=== PATIENT | female | born 1985 | race Caucasian/White ===

== ENCOUNTER 2023-12-08 04:08 | Day surgery (SDC) | payer OTHER ==
[2023-12-07 13:49] VITALS: BMI 29.9
[2023-12-08] MEDS ORDERED: oxyCODONE HCL 5 MG TABLET PO PRN ×2 (13:31)
[2023-12-08] MEDS ORDERED: PROMETHAZINE HCL 25 MG/1 ML VIAL IVPB PRN (13:31)
[2023-12-08] MEDS ORDERED: LACTATED RINGERS SOLUTION 1,000 ML IV SCH (13:45)
[2023-12-08] MEDS ORDERED: SEVOFLURANE 250 ML BTL ONE (13:45)
[2023-12-08] MEDS ORDERED: MIDAZOLAM HCL 2 MG/2 ML SINGLE DOSE VIAL ONE (13:48)
[2023-12-08] MEDS ORDERED: PROPOFOL 20 ML ONE (13:48)
[2023-12-08] MEDS ORDERED: ACETAMINOPHEN INJECTION 100 ML IVPB ONE (13:51)
[2023-12-08] MEDS ORDERED: LIDOCAINE HCL/PF 2% SDV 5ML VIAL ONE (13:56)
[2023-12-08] MEDS ORDERED: DEXAMETHASONE SOD PHOSPHATE 4 MG/1 ML VIAL ONE (13:56)
[2023-12-08] MEDS ORDERED: KETOROLAC TROMETHAMINE 30 MG/1 ML VIAL ONE (13:56)
[2023-12-08] MEDS ORDERED: ceFAZolin SODIUM 1 GM VIAL ONE (14:01)
[2023-12-08] MEDS: ceFAZolin SODIUM 1 GM VIAL IVPB ONE (14:06)
[2023-12-08] MEDS: BUPIVACAINE HCL/PF 0.5% (5MG/ML) 10 ML VIAL IJ ONE (15:32)
[2023-12-08] MEDS: ONDANSETRON 4 MG/2 ML VIAL IVPUSH PRN (18:48)
[2023-12-08] MEDS ORDERED: ONDANSETRON 4 MG/2 ML VIAL ONE (18:49)
[2023-12-08 18:57] VITALS: BP 124/68; PULSE 76; RESP 20; TEMP 97.1
== END 2023-12-08 19:50 | disposition home or self-care (01) ==
LOC: JASU-SURG 04:08
PROVIDERS: ATTEND Obstetrics & Gynecology
PROC: 0JQC0ZZ Repair Pelvic Region Subcutaneous Tissue and Fascia, Open Approach (ICD-10-PCS; principal; 2023-12-08 13:30)
DX: N81.6 Rectocele (principal)
CPT/HCPCS: 94760; J0131